=== PATIENT | female | born 1945 | race Caucasian/White ===

== ENCOUNTER 2021-06-01 00:03 | Emergency (ER) | payer OTHER ==
[2021-06-01 00:09] VITALS: BMI 19.0
[2021-06-01] MEDS ORDERED: METHOCARBAMOL 500 MG TABLET PO ONE (01:13)
[2021-06-01] MEDS ORDERED: LIDOCAINE 5% TOPICAL PATCH TP ONE (01:13)
[2021-06-01] MEDS ORDERED: METHOCARBAMOL 500 MG TABLET ONE (01:26)
[2021-06-01] MEDS ORDERED: LIDOCAINE 5% TOPICAL PATCH ONE (01:26)
[2021-06-01 01:36] LABS: BASO % 1.4 % (0-2.0); EOS % 0.4 % (0-4.5); HEMATOCRIT 37.6 % (32.4-45.2); HEMOGLOBIN 12.9 GM/dL (10.7-15.3); LYMPH % 18.8 % (8-40); MCH 31.3 pg (25.7-33.7); MCHC 34.3 g/dl (32.0-36.0); MEAN CELL VOLUME 91.2 fl (80-96); MEAN PLT VOLUME 7.5 fl (7.5-11.1); MONO % 5.4 % (3.8-10.2); PLATELET COUNT 350 10^3/uL (134-434); RBC 4.12 M/mm3 (3.60-5.2); RDW 13.8 % (11.6-15.6); WHITE BLOOD COUNT 7.5 K/mm3 (4.0-10.0)
[2021-06-01 01:52] LABS: CHLORIDE 104 mmol/L (98-107); SODIUM 138 mmol/L (136-145)
[2021-06-01 01:54] LABS: CALCIUM 9.6 mg/dL (8.5-10.1)
[2021-06-01 01:55] LABS: ALBUMIN 4.1 g/dl (3.4-5.0); ANION GAP 6 MMOL/L (8-16); BLOOD UREA NITROGEN 13.6 mg/dL (7-18); CO2 28 mmol/L (21-32); GLUCOSE,RANDOM 119 mg/dL (74-106)
[2021-06-01 01:58] LABS: CREATININE 0.5 mg/dL (0.55-1.3); SGOT/AST 32 U/L (15-37); SGPT/ALT 22 U/L (13-61)
[2021-06-01 01:59] LABS: TOT PROT 7.9 g/dl (6.4-8.2)
[2021-06-01 02:01] LABS: ALK PHOS 105 U/L (45-117)
[2021-06-01 02:15] LABS: BILIRUBIN,TOTAL 0.4 mg/dL (0.2-1)
[2021-06-01 02:36] LABS: EPI CELLS 1 /uL (0-25.1); HYALINE CASTS 0 /uL (0-3.1); URINE APPEARANCE CLEAR; URINE BACTERIA 7 /uL (0-1359); URINE BILIRUBIN NEGATIVE (NEGATIVE); URINE COLOR YELLOW; URINE GLUCOSE (UA) NEGATIVE (NEGATIVE); URINE KETONE NEGATIVE (NEGATIVE); URINE LEUK ESTERASE TRACE (NEGATIVE); URINE NITRITE NEGATIVE (NEGATIVE); URINE PROTEIN NEGATIVE (NEGATIVE); URINE RBC 4 /uL (0-23.9); URINE UROBILINOGEN 0.2 mg/dL (0.2-1.0); URINE WBC 6 /uL (0-25.8)
[2021-06-01] MEDS ORDERED: FOLIC ACID INJECTION - 1 MG, THIAMINE HCL 100 MG, MULTIVIT INJECTION ADULT 10 ML in SOD... IVPB ONE (03:39)
[2021-06-01] MEDS ORDERED: morphine CARPU-JECT 2 MG/1 ML DISP.SYRIN IVPUSH ONE (03:40)
[2021-06-01] MEDS ORDERED: MORPHINE SULFATE 2 MG/ML VIAL ONE (04:11)
[2021-06-01 06:37] VITALS: BP 135/67; PULSE 70; TEMP 98.6
[2021-06-01] MEDS ORDERED: LIDOCAINE PATCH REMOVAL MC SCH (22:00)
== END 2021-06-01 06:38 | disposition home or self-care (01) ==
LOC: JER 00:03
PROC: 3E033GC Introduction of Other Therapeutic Substance into Peripheral Vein, Percutaneous Approach (ICD-10-PCS; principal; 2021-06-01)
DX: R11.0 Nausea (principal); M54.5 Low back pain; M81.0 Age-related osteoporosis without current pathological fracture; M41.35 Thoracogenic scoliosis, thoracolumbar region
CPT/HCPCS: 36415; 71046-TC-FY; 72170-TC-FY; 80053; 81003; 84484; 85025; 93005; 93010; 99285-25